=== PATIENT | male | born 1965 | race Caucasian/White ===

== ENCOUNTER 2023-08-02 07:15 | Outpatient (OUT) | payer OTHER, SELFPAY ==
[2023-08-02 07:34] LABS: Basophils Percent Auto 0.8 % (0.2-2.0); Eosinophils Absolute Auto 0.1 10^3/uL (0.0-0.7); Eosinophils Percent Auto 1.4 % (0.9-7.0); Hematocrit 42.8 % (42.0-54.0); Hemoglobin 14.8 g/dL (14.0-18.0); Immature Granulocytes Abs Auto 0.01 10^3/uL (0.00-0.03); Immature Granulocytes Pct Auto 0.2 % (0.0-0.5); Lymphocytes Absolute Auto 1.5 10^3/uL (1.2-3.8); Lymphocytes Percent Auto 29.4 % (20.5-60.0); Mean Corpuscular HGB Conc 34.6 g/dL (29.9-35.2); Mean Corpuscular Hemoglobin 31.4 pg (25.9-34.0); Mean Corpuscular Volume 90.9 fL (80.0-94.0); Mean Platelet Volume 10.8 fL (9.5-13.5); Monocytes Absolute Auto 0.4 10^3/uL (0.3-0.8); Monocytes Percent Auto 8.1 % (1.7-12.0); Neutrophils Percent Auto 60.1 % (43.0-75.0); Platelet Count 153 10^3/uL (150-450); Red Blood Count 4.71 10^6/uL (4.70-6.10)
[2023-08-02 08:05] LABS: Estimated Average Glucose 163 mg/dL; Glycohemoglobin A1C 7.3 % (4.5-6.2)
[2023-08-02 09:10] LABS: Alanine Aminotransferase 56 U/L (16-63); Albumin Level 3.7 g/dL (3.4-5.0); Alkaline Phosphatase 87 U/L (46-116); Aspartate Amino Transferase 26 U/L (15-37); BUN Creatinine Ratio 12.4; Bilirubin Total 0.4 mg/dL (0.2-1.0); Calcium 9.3 mg/dL (8.5-10.1); Carbon Dioxide 24.2 mmol/L (21.0-32.0); Chloride 105 mmol/L (98-107); Chol HDL Ratio 4.3; Cholesterol 165 mg/dL (<=200); Estimated GFR (African America >60 (>=60); Estimated GFR (Non-African Ame >60 (>=60); Globulin 3.7 g/dL; Glucose 189 mg/dL (74-106); HDL Cholesterol 38 mg/dL (40-60); Potassium 4.2 mmol/L (3.5-5.1); Sodium 142 mmol/L (136-145); Thyroid Stimulating Hormone 1.388 uIU/mL (0.358-3.740); Total Protein 7.4 g/dL (6.4-8.2); Triglycerides 187 mg/dL (<=150); VLDL CHOLESTEROL 37.4 mg/dL
[2023-08-02 09:29] LABS: Prostate Specific Antigen Scrn 1.18 ng/mL (<=4.00)
[2023-08-03 08:08] LABS: Testosterone 230 ng/dL (264-916)
== END 2023-08-02 07:16 | disposition home or self-care (01) ==
PROVIDERS: PCP Family Medicine; Visit Provider Family Medicine
DX: Z00.00 Encounter for general adult medical examination without abnormal findings (principal); R53.83 Other fatigue
CPT/HCPCS: 36415; 80053; 80061; 83036; 84403; 84436; 84443; 84481; 85025; G0103

== ENCOUNTER 2023-08-03 14:26 | Outpatient (REF) | payer OTHER, SELFPAY ==
[2023-08-04 16:24] LABS: Occult Blood Negative
== END 2023-08-03 14:27 | disposition home or self-care (01) ==
LOC: LAB 14:26
PROVIDERS: PCP Family Medicine; Visit Provider Family Medicine
DX: Z00.00 Encounter for general adult medical examination without abnormal findings (principal)
CPT/HCPCS: G0328

== ENCOUNTER 2023-08-16 08:23 | Outpatient (OUT) | payer OTHER, SELFPAY ==
--- OUTSIDE RECORDS SUMMARY | 2023-08-16 08:26 | XMS_ITS | CCD ---
Author Organization [facility] Care Team Providers Care [employer] Sales Agent Name Role Phone DR CAROLYN BAIRES Admitting Unavailable DR CAROLYN BAIRES Attending Unavailable DR CAROLYN BAIRES Primary Care Unavailable DR CAROLYN BAIRES Admitting Unavailable DR CAROLYN BAIRES Attending Unavailable DR CAROLYN BAIRES Primary Care Unavailable DR CAROLYN BAIRES Consulting Unavailable WEST, DR FRANCISCO J Soares Consulting Unavailable Allergies Allergy Classification Reported Allergen(s) Allergy Type Date of Onset Reaction(s) Facility (2 sources) Shellfish Drug allergy (disorder) [facility] Repository Problems Problem Classification Problem Date Documented Da te Episodic/Chronic Other non-traumatic joint disorders (1 source) Pain in right shoulder; Translations: [PAIN IN RIGHT SHOULDER] Onset: 02-19-2022 Episodic Other non-traumatic joint disorders (1 source) Pain in left shoulder; Translations: [PAIN IN LEFT SHOULDER] Onset: 02-19-2022 Episodic Other screening for suspected conditions (not mental disorders or infectious disease) (1 source) Encounter for screening for malignant neoplasm of prostate; Translations: [ENC SCREEN MALIG NEOPLASM PROSTATE] Onset: 02-19-2022 Episodic Results Test Name Value Interpretation Reference Range Facil ity INSULINon 02-18-2022 Insulin 24.2 uIU/mL Normal 2.6-24.9 [facility] Comment on above: Performed By: #### I NSULIN #### [facility] [address] [address] [address] Geo Johns XR SHOULDER AMANDA 2V or >on XR SHOULDER AMANDA 2V or > EXAMINATION: XR SHOULDER AMANDA 2V or > HISTORY: Shoulder joint pain COMPARISON: No relevant comparison available. FINDINGS: RIGHT FINDINGS: BONES: Normal. No significant arthropathy or acute abnormality. SOFT TISSUES: Negative. No visible soft tissue swelling. OTHER: Degenerative spondylosis of the spine. LEFT FINDINGS: BONES: Normal. No significant arthropathy or acute abnormality. SOFT TISSUES: Negative. No visible soft tissue swelling. OTHER: Negative. IMPRESSION: RIGHT CONCLUSION: No acute abnormality LEFT CONCLUSION: No acute abnormality Electronically authenticated by: FRANCISCO J CHEUNG Date: 2022-02-18 17:12 Normal [facility] CBC AUTO DIFFon 02-16-2022 BASO # 0.0 103/ul Normal 0.0-0.1 [facility] Comment on above: Performed By: #### C BC #### [facility] [address] [place] [address] Dr. Geo Johns Basophils/100 WBC (Bld) 0.7 % Normal 0.2-2.0 [facility] Comment on above: Performed By: #### C BC #### [facility] [address] [place] [address] Dr. Geo Johns EO # 0.1 103/ul Normal 0.0-0.7 [facility] Comment on above: Performed By: #### C BC #### [facility] [address] [place] [address] Dr. Geo Johns Eosinophils/100 WBC (Bld) 1.0 % Normal 0.9-7.0 [facility] Comment on above: Performed By: #### C BC #### [facility] [address] [place] [address] Dr. Geo Johns Erythrocyte distribution width (RBC) [Ratio] 13.2 % Normal 11.0-15.0 [facility] Comment on above: Performed By: #### C BC #### [facility] [address] [place] [address] Dr. Geo Johns Hematocrit (Bld) [Volume fraction] 44.2 % Normal 42.0-54.0 [facility] Comment on above: Performed By: #### C BC #### [facility] [address] [place] [address] Dr. Geo Johns Hemoglobin (Bld) [Mass/Vol] 15.4 g/dL Normal 14.0-18.0 [facility] Comment on above: Performed By: #### C BC #### [facility] [address] [place] [address] Dr. Geo Johns IG # 0.02 10e3/ul Normal 0.00-0.03 [facility] Comment on above: Performed By: #### C BC #### [facility] [address] [place] [address] Dr. Geo Johns IG % 0.3 % Normal 0.0-0.5 [facility] Comment on above: Performed By: #### C BC #### [facility] [address] [place] [address] Dr. Geo Johns LYMPH # 1.8 103/ul Normal 1.2-3.8 [facility] Comment on above: Performed By: #### C BC #### [facility] [address] [place] [address] Dr. Geo Johns Lymphocytes/100 WBC (Bld) 30.3 % Normal 20.5-60.0 [facility] Comment on above: Performed By: #### C BC #### [facility] [address] [place] [address] Dr. Geo Johns MANUAL DIFF REQ NO Normal [facility] Comment on above: Performed By: #### C BC #### [facility] [address] [place] [address] Dr. Geo Johns MCH (RBC) [Entitic mass] 31.9 pg Normal 25.9-34.0 [facility] Comment on above: Performed By: #### C BC #### [facility] [address] [place] [address] Dr. Geo Johns MCHC (RBC) [Mass/Vol] 34.8 g/dL Normal 29.9-35.2 [facility] Comment on above: Performed By: #### C BC #### [facility] [address] [place] [address] Dr. Geo Johns MCV (RBC) [Entitic vol] 91.5 fL Normal 80.0-94.0 [facility] Comment on above: Performed By: #### C BC #### [facility] [address] [place] [address] Dr. Geo Johns MONO # 0.5 103/ul Normal 0.3-0.8 [facility] Comment on above: Performed By: #### C BC #### [facility] [address] [address] [address] Geo Johns Monocytes/100 WBC (Bld) 7.9 % Normal 1.7-12.0 [facility] Comment on above: Performed By: #### C BC #### [facility] [address] [place] [address] Dr. Geo Johns NEUT # 3.5 103/ul Normal 1.4-6.5 [facility] Comment on above: Performed By: #### C BC #### [facility] [address] [place] [address] Dr. Geo Johns Neutrophils/100 WBC (Bld) 59.8 % Normal 43.0-75.0 [facility] Comment on above: Performed By: #### C BC #### [facility] [address] [place] [address] Dr. Geo Johns Platelet mean volume (Bld) [Entitic vol] 10.9 fL Normal 9.5-13.5 [facility] Comment on above: Performed By: #### C BC #### [facility] [address] [place] [address] Dr. Geo Johns PLT 158 103/ul Normal 150-450 [facility] Comment on above: Performed By: #### C BC #### [facility] [address] [place] [address] Dr. Geo Johns RBC 4.83 106/ul Normal 4.70-6.10 [facility] Comment on above: Performed By: #### C BC #### [facility] [address] [place] [address] Dr. Geo Johns WBC 5.8 103/ul Normal 4.0-11.0 [facility] Comment on above: Performed By: #### C BC #### [facility] [address] [place] [address] Dr. Geo Johns GLYCOHEMOGLOBIN A1Con 2021 ADA RECOMMENDATION SEE BELOW Normal [facility] Comment on above: Result Comment: ADA RECOMMENDED LIMIT 4.0 - 6.0 ADA THERAPEUTIC TARGET < 7.0 ACTION SUGGESTED > 7.0 Performed By: #### A 1C #### [facility] [address] [address] [address] Geo Johns Glucose [Mass/Vol] 117 mg/dL Normal [facility] Comment on above: Performed By: #### A 1C #### [facility] [address] [address] [address] Geo Johns HbA1c (Bld) [Mass fraction] 5.7 % Normal 4.5-6.2 [facility] Comment on above: Performed By: #### A 1C #### [facility] [address] [address] [address] Geo Johns LIPID PROFILEon 02-16-2022 CHOL-HDL RATIO NORM SEE BELOW Normal [facility] Comment on above: Result Comment: 3.3 - 4.4 LOW RISK 4.4 - 7.1 AVERAGE RISK 7.1 - 11.0 MODERATE RISK >11.0 HIGH RISK Performed By: #### U SERA, CMP, LIPID #### [facility] [address] [address] [address] Geo Johns Cholesterol [Mass/Vol] 183 mg/dL Normal <=200 [facility] Comment on above: Performed By: #### U SERA, CMP, LIPID #### [facility] [address] [address] [address] Geo Johns Cholesterol in HDL [Mass/Vol] 59 mg/dL Normal 40-60 [facility] Comment on above: Performed By: #### U SERA, CMP, LIPID #### [facility] [address] [address] [address] Geo Johns Cholesterol in LDL [Mass/Vol] 101.6 mg/dL Normal [facility] Comment on above: Performed By: #### U SERA, CMP, LIPID #### [facility] [address] [address] [address] Geo Johns Cholesterol.total/Cho lesterol in HDL [Mass ratio] 3.1 {ratio} Normal [facility] Comment on above: Performed By: #### U SERA, CMP, LIPID #### [facility] [address] [address] [address] Geo Johns HDL NORMAL > or = 60 mg/dl - LOW CARDIOVASCULAR RISK <40 mg/dl - HIGH CARDIOVASCULAR RISK Normal [facility] Comment on above: Performed By: #### U SERA, CMP, LIPID #### [facility] [address] [address] [address] Geo Johns LDL CALC NORMAL SEE BELOW Normal [facility] Comment on above: Result Comment: <100 mg/dl OPTIMAL 100 - 129 mg/dl NEAR OR ABOVE OPTIMAL 130 - 159 mg/dl BORDERLINE HIGH 160 - 189 mg/dl HIGH >190 mg/dl VERY HIGH Performed By: #### U SERA, CMP, LIPID #### [facility] [address] [address] [address] Geo Johns Triglyceride [Mass/Vol] 112 mg/dL Normal <=150 [facility] Comment on above: Performed By: #### U SERA, CMP, LIPID #### [facility] [address] [address] [address] Geo Johns VLDL CALC 22.4 mg/dL Normal [facility] Comment on above: Performed By: #### U SERA, CMP, LIPID #### [facility] [address] [address] [address] Geo Johns PROF 14(COMP METB)on 022 Albumin [Mass/Vol] 4.1 g/dL Normal 3.4-5.0 [facility] Comment on above: Performed By: #### U SERA, CMP, LIPID #### [facility] [address] [address] [address] Geo Johns Albumin/Globulin [Mass ratio] 1.2 {ratio} Normal [facility] Comment on above: Performed By: #### U SERA, CMP, LIPID #### [facility] [address] [address] [address] Geo Johns ALP [Catalytic activity/Vol] 68 U/L Normal 46-116 [facility] Comment on above: Performed By: #### U SERA, CMP, LIPID #### [facility] [address] [address] [address] Geo Johns ALT [Catalytic activity/Vol] 35 U/L Normal 16-63 [facility] Comment on above: Performed By: #### U SERA, CMP, LIPID #### [facility] [address] [address] [address] Geo Johns Anion gap [Moles/Vol] 14.7 mmol/L Normal [facility] Comment on above: Performed By: #### U SERA, CMP, LIPID #### [facility] [address] [address] [address] Geo Johns AST [Catalytic activity/Vol] 16 U/L Normal 15-37 [facility] Comment on above: Performed By: #### U SERA, CMP, LIPID #### [facility] [address] [place] [address] Dr. Geo Johns Bilirubin [Mass/Vol] 0.3 mg/dL Normal 0.2-1.0 [facility] Comment on above: Performed By: #### U SERA, CMP, LIPID #### [facility] [address] [address] [address] Geo Johns Calcium [Mass/Vol] 8.7 mg/dL Normal 8.5-10.1 [facility] Comment on above: Performed By: #### U SERA, CMP, LIPID #### [facility] [address] [place] [address] Dr. Geo Johns Chloride [Moles/Vol] 105 mmol/L Normal 98-107 [facility] Comment on above: Performed By: #### U SERA, CMP, LIPID #### [facility] [address] [address] [address] Geo Johns CO2 [Moles/Vol] 25.8 mmol/L Normal 21.0-32.0 [facility] Comment on above: Performed By: #### U SERA, CMP, LIPID #### [facility] [address] [address] [address] Geo Johns Creatinine [Mass/Vol] 1.00 mg/dL Normal 0.70-1.30 [facility] Comment on above: Performed By: #### U SERA, CMP, LIPID #### [facility] [address] [address] [address] Geo Johns EGFR-AF BURMESE >60 Normal >=60 [facility] Comment on above: Performed By: #### U SERA, CMP, LIPID #### [facility] [address] [address] [address] Geo Johns EGFR-NON AF BURMESE >60 Normal >=60 [facility] Comment on above: Performed By: #### U SERA, CMP, LIPID #### [facility] [address] [address] [address] Geo Johns Globulin (S) [Mass/Vol] 3.3 g/dL Normal [facility] Comment on above: Performed By: #### U SERA, CMP, LIPID #### [facility] [address] [address] [address] Geo Johns Glucose [Mass/Vol] 127 mg/dL Critically high 74-106 [facility] Comment on above: Performed By: #### U SERA, CMP, LIPID #### [facility] [address] [address] [address] Geo Johns Potassium [Moles/Vol] 4.5 mmol/L Normal 3.5-5.1 [facility] Comment on above: Performed By: #### U SERA, CMP, LIPID #### [facility] [address] [address] [address] Geo Johns Protein [Mass/Vol] 7.4 g/dL Normal 6.4-8.2 [facility] Comment on above: Performed By: #### U SERA, CMP, LIPID #### [facility] [address] [address] [address] Geo Johns Sodium [Moles/Vol] 141 mmol/L Normal 136-145 [facility] Comment on above: Performed By: #### U SERA, CMP, LIPID #### [facility] [address] [address] [address] Geo Johns Urea nitrogen [Mass/Vol] 23.0 mg/dL Critically high 7.0-18.0 [facility] Comment on above: Performed By: #### U SERA, CMP, LIPID #### [facility] [address], [place] [address] Dr. Geo Johns Urea nitrogen/Creatinine [Mass ratio] 23.0 mg/mg Normal [facility] Comment on above: Performed By: #### U SERA, CMP, LIPID #### [facility] [address], [place] [address] Dr. Geo Johns URIC ACID SERUMon 02-16-2022 Urate [Mass/Vol] 4.9 mg/dL Normal 3.5-7.2 [facility] Comment on above: Performed By: #### U SERA, CMP, LIPID #### [facility] [address], [place] [address] Dr. Geo Johns Encounters Encounter Date Encounter Type Care Provider Facility Start: 02-19-2022 Encounter for genera l adult medical examination without abnormal findings DR CAROLYN BAIRES [facility] Start: 02-16-2022 End: 02-17-[address] CAROLYN BAIRES Facility:[facility] Start: 02-16-2022 End: 02-17-2022 Encounter for general adult medical examination without abnormal findings DR CAROLYN BAIRES Facility:[facility] Start: 07-17-[address] CAROLYN BAIRES Facility :[facility] Procedures Date Procedure Procedure Detail Performing Clinician Start: 02-16-[address] BOZENA BAIRES Comment on above: Performed By: #### P SASC #### [facility] [address], [place] [address] Dr. Geo Johns Payers Date Payer Category Payer Unknown [id number] [id number] [id number] 1965 Unknown [id number] 1958 Self-pay 1958 Unknown [id number] Summary Purpose Family History No Family History Records Found Advance Directives No Advanced Directives Records Found Additional Source Comments (unrecognized sect ion and content) No Status Records Found INFORMATION SOURCE (unrecogn ized section and content) DATE CREATED AUTHOR 02/20/2022 [facility] FOR RECORDS PERTAINING TO PATIENTS WHO ARE OR HAVE BEEN ENROLLED IN A CHEMICAL DEPENDENCY/SUBSTANCEABUSE PROGRAM, SOME INFORMATION MAY BE OMITTED. This clinical summary was aggregated from multiple sources. Caution should be exercised in using it in the provision of clinical care. This summary normalizes information from multiple sources, and as a consequence, information in this document may materially change the coding, format and clinical context of patient data. In addition, data may be omitted in some cases. CLINICAL DECISIONS SHOULD BE BASED ON THE PRIMARY CLINICAL RECORDS. [facility], [facility]. provides no warranty or guarantee of the accuracy or completeness of information in this document.
[2023-08-17 08:07] LABS: Testosterone 315 ng/dL (264-916)
== END 2023-08-16 08:24 | disposition home or self-care (01) ==
LOC: LAB 08:24
PROVIDERS: PCP Family Medicine; Visit Provider Family Medicine
DX: E29.1 Testicular hypofunction (principal)
CPT/HCPCS: 36415; 84403

== ENCOUNTER 2023-11-29 08:25 | Outpatient (OUT) | payer OTHER, SELFPAY ==
--- OUTSIDE RECORDS SUMMARY | 2023-11-17 06:31 | XMS_ITS | CCD ---
Author Organization [facility] Care Team Providers Care Brush Maker Machine Name Role Phone DR CAROLYN BAIRES Admitting Unavailable DEQUAN, DR LEON Attending Unavailable DR CAROLYN BAIRES Primary Care Unavailable DR CAROLYN BAIRES Admitting Unavailable DEQUAN, DR LEON Attending Unavailable DEQUAN, DR LEON Primary Care Unavailable DR CAROLYN BAIRES Consulting Unavailable WEST, DR FRANCISCO J Soares Consulting Unavailable Allergies Allergy Classification Reported Allergen(s) Allergy Type Date of Onset Reaction(s) Facility (2 sources) Shellfish Drug allergy (disorder) [facility] Repository Problems Problem Classification Problem Date [...] INSULINon 02-18-2022 Insulin 24.2 uIU/mL Normal 2.6-24.9 [facility] Comment on above: Performed By: #### I NSULIN #### [facility] [address] [address] [address] Geo Johns XR SHOULDER AMANDA 2V [...] J CHEUNG Date: 2022-02-18 17:12 Normal [facility] CBC AUTO DIFFon 02-16-2022 BASO # 0.0 103/ul Normal 0.0-0.1 [facility] Comment on above: Performed By: #### C BC #### [facility] [address] [place] [address] Dr. Geo Johns Basophils/100 WBC (Bld) 0.7 % Normal 0.2-2.0 [facility] Comment on above: Performed By: #### C BC #### [facility] [address] [place] [address] Dr. Geo Johns EO # 0.1 103/ul Normal 0.0-0.7 [facility] Comment on above: Performed By: #### C BC #### [facility] [address] [place] [address] Dr. Geo Johns Eosinophils/100 WBC (Bld) 1.0 % Normal 0.9-7.0 [facility] Comment on above: Performed By: #### C BC #### [facility] [address] [place] [address] Dr. Geo Johns Erythrocyte distribution width (RBC) [Ratio] 13.2 % Normal 11.0-15.0 [facility] Comment on above: Performed By: #### C BC #### [facility] [address] [place] [address] Dr. Geo Johsn Hematocrit (Bld) [Volume fraction] 44.2 % Normal 42.0-54.0 [facility] Comment on above: Performed By: #### C BC #### [facility] [address] [place] [address] Dr. Geo Johns Hemoglobin (Bld) [Mass/Vol] 15.4 g/dL Normal 14.0-18.0 [facility] Comment on above: Performed By: #### C BC #### [facility] [address] [place] [address] Dr. Geo Johns IG # 0.02 10e3/ul Normal 0.00-0.03 [facility] Comment on above: Performed By: #### C BC #### [facility] [address] [place] [address] Dr. Geo Johns IG % 0.3 % Normal 0.0-0.5 [facility] Comment on above: Performed By: #### C BC #### [facility] [address] [place] [address] Dr. Geo Johns LYMPH # 1.8 103/ul Normal 1.2-3.8 [facility] Comment on above: Performed By: #### C BC #### [facility] [address] [place] [address] Dr. Geo Johns Lymphocytes/100 WBC (Bld) 30.3 % Normal 20.5-60.0 [facility] Comment on above: Performed By: #### C BC #### [facility] [address] [place] [address] Dr. Geo Johns MANUAL DIFF REQ NO Normal [facility] Comment on above: Performed By: #### C BC #### [facility] [address] [place] [address] Dr. Geo Johns MCH (RBC) [Entitic mass] 31.9 pg Normal 25.9-34.0 [facility] Comment on above: Performed By: #### C BC #### [facility] [address] [place] [address] Dr. Geo Johns MCHC (RBC) [Mass/Vol] 34.8 g/dL Normal 29.9-35.2 [facility] Comment on above: Performed By: #### C BC #### [facility] [address] [place] [address] Dr. Geo Johns MCV (RBC) [Entitic vol] 91.5 fL Normal 80.0-94.0 [facility] Comment on above: Performed By: #### C BC #### [facility] [address] [place] [address] Dr. Geo Johns MONO # 0.5 103/ul Normal 0.3-0.8 [facility] Comment on above: Performed By: #### C BC #### [facility] [address] [place] [address] Dr. Geo Johns Monocytes/100 WBC (Bld) 7.9 % Normal 1.7-12.0 [facility] Comment on above: Performed By: #### C BC #### [facility] [address] [place] [address] Dr. Geo Johns NEUT # 3.5 103/ul Normal 1.4-6.5 [facility] Comment on above: Performed By: #### C BC #### [facility] [address] [place] [address] Dr. Geo Johns Neutrophils/100 WBC (Bld) 59.8 % Normal 43.0-75.0 [facility] Comment on above: Performed By: #### C BC #### [facility] [address] [place] [address] Dr. Geo Johns Platelet mean volume (Bld) [Entitic vol] 10.9 fL Normal 9.5-13.5 [facility] Comment on above: Performed By: #### C BC #### [facility] [address] [place] [address] Dr. Geo Johns PLT 158 103/ul Normal 150-450 [facility] Comment on above: Performed By: #### C BC #### [facility] [address] [place] [address] Dr. Geo Johns RBC 4.83 106/ul Normal 4.70-6.10 [facility] Comment on above: Performed By: #### C BC #### [facility] [address] [place] [address] Dr. Geo Johns WBC 5.8 103/ul Normal 4.0-11.0 [facility] Comment on above: Performed By: #### C BC #### [facility] [address] [place] [address] Dr. Geo Johns GLYCOHEMOGLOBIN A1Con 2021 ADA RECOMMENDATION SEE BELOW Normal [facility] Comment on above: Result Comment: ADA RECOMMENDED LIMIT 4.0 - 6.0 ADA THERAPEUTIC TARGET < 7.0 ACTION SUGGESTED > 7.0 Performed By: #### A 1C #### [facility] [address] [address] [address] Geo Johns Glucose [Mass/Vol] 117 mg/dL Normal [facility] Comment on above: Performed By: #### A 1C #### [facility] [address] [address] [address] Geo Johns HbA1c (Bld) [Mass fraction] 5.7 % Normal 4.5-6.2 [facility] Comment on above: Performed By: #### A 1C #### [facility] [address] [address] [address] Geo Johns LIPID PROFILEon 02-16-2022 CHOL-HDL RATIO NORM SEE BELOW Normal [facility] Comment on above: Result Comment: 3.3 - 4.4 LOW RISK 4.4 - 7.1 AVERAGE RISK 7.1 - 11.0 MODERATE RISK >11.0 HIGH RISK Performed By: #### U SERA, CMP, LIPID #### [facility] [address] [address] [address] Geo Johns Cholesterol [Mass/Vol] 183 mg/dL Normal <=200 [facility] Comment on above: Performed By: #### U SERA, CMP, LIPID #### [facility] [address] [address] [address] Geo Johns Cholesterol in HDL [Mass/Vol] 59 mg/dL Normal 40-60 [facility] Comment on above: Performed By: #### U SERA, CMP, LIPID #### [facility] [address] [address] [address] Geo Johns Cholesterol in LDL [Mass/Vol] 101.6 mg/dL Normal [facility] Comment on above: Performed By: #### U SERA, CMP, LIPID #### [facility] [address] [address] [address] Geo Johns Cholesterol.total/Cho lesterol in HDL [Mass ratio] 3.1 {ratio} Normal [facility] Comment on above: Performed By: #### U SERA, CMP, LIPID #### [facility] [address] [address] [address] Geo Johns HDL NORMAL > or = 60 mg/dl - LOW CARDIOVASCULAR RISK <40 mg/dl - HIGH CARDIOVASCULAR RISK Normal [facility] Comment on above: Performed By: #### U SERA, CMP, LIPID #### [facility] [address] [address] [address] Geo Johns LDL CALC NORMAL SEE BELOW Normal [facility] Comment on above: Result Comment: <100 mg/dl OPTIMAL 100 - 129 mg/dl NEAR OR ABOVE OPTIMAL 130 - 159 mg/dl BORDERLINE HIGH 160 - 189 mg/dl HIGH >190 mg/dl VERY HIGH Performed By: #### U SERA, CMP, LIPID #### [facility] [address] [address] [address] Geo Johns Triglyceride [Mass/Vol] 112 mg/dL Normal <=150 [facility] Comment on above: Performed By: #### U SERA, CMP, LIPID #### [facility] [address] [address] [address] Geo Johns VLDL CALC 22.4 mg/dL Normal [facility] Comment on above: Performed By: #### U SERA, CMP, LIPID #### [facility] [address] [address] [address] Geo Johns PROF 14(COMP METB)on 022 Albumin [Mass/Vol] 4.1 g/dL Normal 3.4-5.0 [facility] Comment on above: Performed By: #### U SERA, CMP, LIPID #### [facility] [address] [address] [address] Geo Johns Albumin/Globulin [Mass ratio] 1.2 {ratio} Normal [facility] Comment on above: Performed By: #### U SERA, CMP, LIPID #### [facility] [address] [address] [address] Geo Johns ALP [Catalytic activity/Vol] 68 U/L Normal 46-116 [facility] Comment on above: Performed By: #### U SERA, CMP, LIPID #### [facility] [address] [address] [address] Geo Johns ALT [Catalytic activity/Vol] 35 U/L Normal 16-63 [facility] Comment on above: Performed By: #### U SERA, CMP, LIPID #### [facility] [address] [address] [address] Geo Johns Anion gap [Moles/Vol] 14.7 mmol/L Normal [facility] Comment on above: Performed By: #### U SERA, CMP, LIPID #### [facility] [address] [address] [address] Geo Johns AST [Catalytic activity/Vol] 16 U/L Normal 15-37 [facility] Comment on above: Performed By: #### U SERA, CMP, LIPID #### [facility] [address] [address] [address] Geo Johns Bilirubin [Mass/Vol] 0.3 mg/dL Normal 0.2-1.0 [facility] Comment on above: Performed By: #### U SERA, CMP, LIPID #### [facility] [address] [address] [address] Geo Johns Calcium [Mass/Vol] 8.7 mg/dL Normal 8.5-10.1 [facility] Comment on above: Performed By: #### U SERA, CMP, LIPID #### [facility] [address] [address] [address] Geo Johns Chloride [Moles/Vol] 105 mmol/L Normal 98-107 [facility] Comment on above: Performed By: #### U SERA, CMP, LIPID #### [facility] [address] [address] [address] Geo Johns CO2 [Moles/Vol] 25.8 mmol/L Normal 21.0-32.0 [facility] Comment on above: Performed By: #### U SERA, CMP, LIPID #### [facility] [address] [address] [address] Geo Johns Creatinine [Mass/Vol] 1.00 mg/dL Normal 0.70-1.30 [facility] Comment on above: Performed By: #### U SERA, CMP, LIPID #### [facility] [address] [address] [address] Geo Johns EGFR-AF [place] >60 Normal >=60 [facility] Comment on above: Performed By: #### U SERA, CMP, LIPID #### [facility] [address] [address] [address] Geo Johns EGFR-NON AF [place] >60 Normal >=60 [facility] Comment on above: Performed By: #### U SERA, CMP, LIPID #### [facility] [address] [address] [address] Geo Johns Globulin (S) [Mass/Vol] 3.3 g/dL Normal [facility] Comment on above: Performed By: #### U SERA, CMP, LIPID #### [facility] [address] [address] [address] Geo Johns Glucose [Mass/Vol] 127 mg/dL Critically high 74-106 [facility] Comment on above: Performed By: #### U SERA, CMP, LIPID #### [facility] [address] [address] [address] Geo Johns Potassium [Moles/Vol] 4.5 mmol/L Normal 3.5-5.1 [facility] Comment on above: Performed By: #### U SERA, CMP, LIPID #### [facility] [address] [address] [address] Geo Johns Protein [Mass/Vol] 7.4 g/dL Normal 6.4-8.2 [facility] Comment on above: Performed By: #### U SERA, CMP, LIPID #### [facility] [address] [address] [address] Geo Johns Sodium [Moles/Vol] 141 mmol/L Normal 136-145 [facility] Comment on above: Performed By: #### U SERA, CMP, LIPID #### [facility] [address] [address] [address] Geo Johns Urea nitrogen [Mass/Vol] 23.0 mg/dL Critically high 7.0-18.0 [facility] Comment on above: Performed By: #### U SERA, CMP, LIPID #### [facility] [address] [place], [place] [address] Dr. Geo Johns Urea nitrogen/Creatinine [Mass ratio] 23.0 mg/mg Normal [facility] Comment on above: Performed By: #### U SERA, CMP, LIPID #### [facility] [address] [place], [place] [address] Dr. Geo Johns URIC ACID SERUMon 02-16-2022 Urate [Mass/Vol] 4.9 mg/dL Normal 3.5-7.2 [facility] Comment on above: Performed By: #### U SERA, CMP, LIPID #### [facility] [id number] Geo Johns Encounters Encounter Date Encounter Type Care Provider Facility Start: 02-19-2022 Encounter for genera l adult medical examination without abnormal findings DR CAROLYN BAIRES [facility] Start: 02-16-2022 End: 02-17-[address] CAROLYN BAIRES Facility:[facility] Start: 02-16-2022 End: 02-17-2022 Encounter for general adult medical examination without abnormal findings DR CAROLYN BAIRES Facility:[facility] Start: 07-17-[address] CAROLYN BAIRES Facility :[facility] Procedures Date Procedure Procedure Detail Performing Clinician Start: 02-16-[address] BOZENA BAIRES Comment on above: Performed By: #### P SASC #### [facility] [id number] Geo Johns Payers Date Payer Category Payer Unknown [id number] 1965 Unknown [id number] 1958 Self-pay 1958 Unknown [id number] Summary Purpose Family History No Family History Records Found Advance Directives No Advanced Directives Records Found Additional Source Comments (unrecognized sect ion and content) No Status Records Found INFORMATION SOURCE (unrecogn ized section and content) DATE CREATED AUTHOR 02/20/2022 Gisela delcid FOR RECORDS PERTAINING TO PATIENTS WHO ARE [...] BE BASED ON THE PRIMARY CLINICAL RECORDS. [facility] provides no warranty or guarantee of the accuracy or completeness of information in this document.
[2023-11-30 08:08] LABS: Testosterone 249 ng/dL (264-916)
--- OUTSIDE RECORDS SUMMARY | 2023-12-01 08:46 | XMS_ITS | CCD ---
Author Organization [facility] Care Team Providers Care Net C Developer Name Role Phone DR CAROLYN BAIRES Admitting [...] (2 sources) Shellfish Drug allergy (disorder) [facility] Repository Problems Problem Classification Problem Date Documented [...] INSULINon 02-18-2022 Insulin 24.2 uIU/mL Normal 2.6-24.9 [facility] Comment on above: Performed By: #### I NSULIN #### [facility] [address] [address] [address] Geo Johns XR SHOULDER AMANDA 2V [...] J CHEUNG Date: 2022-02-18 17:12 Normal [facility] CBC AUTO DIFFon 02-16-2022 BASO # 0.0 103/ul Normal 0.0-0.1 [facility] Comment on above: Performed By: #### C BC #### [facility] [address] [place] [address] Dr. Geo Johns Basophils/100 WBC (Bld) 0.7 % Normal 0.2-2.0 [facility] Comment on above: Performed By: #### C BC #### [facility] [address] [place] [address] Dr. Geo Johns EO # 0.1 103/ul Normal 0.0-0.7 [facility] Comment on above: Performed By: #### C BC #### [facility] [address] [place] [address] Dr. Geo Johns Eosinophils/100 WBC (Bld) 1.0 % Normal 0.9-7.0 [facility] Comment on above: Performed By: #### C BC #### [facility] [address] [place] [address] Dr. Geo Johns Erythrocyte distribution width (RBC) [Ratio] 13.2 % Normal 11.0-15.0 [facility] Comment on above: Performed By: #### C BC #### [facility] [address] [place] [address] Dr. Geo Johns Hematocrit (Bld) [Volume fraction] 44.2 % Normal 42.0-54.0 [facility] Comment on above: Performed By: #### C BC #### [facility] [address] [place] [address] Dr. Geo Johns Hemoglobin (Bld) [Mass/Vol] 15.4 g/dL Normal 14.0-18.0 [facility] Comment on above: Performed By: #### C BC #### [facility] [address] [place] [address] Dr. Geo Johns IG # 0.02 10e3/ul Normal 0.00-0.03 [facility] Comment on above: Performed By: #### C BC #### [facility] [address] [place] [address] Dr. Geo Johns IG % 0.3 % Normal 0.0-0.5 [facility] Comment on above: Performed By: #### C BC #### [facility] [address] [place] [address] Dr. Geo Johns LYMPH # 1.8 103/ul Normal 1.2-3.8 [facility] Comment on above: Performed By: #### C BC #### [facility] [address] [place] [address] Dr. Geo Johns Lymphocytes/100 WBC (Bld) 30.3 % Normal 20.5-60.0 [facility] Comment on above: Performed By: #### C BC #### [facility] [address] [place] [address] Dr. Geo Johns MANUAL DIFF REQ NO Normal [facility] Comment on above: Performed By: #### C BC #### [facility] [address] [place] [address] Dr. Geo Johns MCH (RBC) [Entitic mass] 31.9 pg Normal 25.9-34.0 [facility] Comment on above: Performed By: #### C BC #### [facility] [address] [place] [address] Dr. Geo Johns MCHC (RBC) [Mass/Vol] 34.8 g/dL Normal 29.9-35.2 [facility] Comment on above: Performed By: #### C BC #### [facility] [address] [place] [address] Dr. Geo Johns MCV (RBC) [Entitic vol] 91.5 fL Normal 80.0-94.0 [facility] Comment on above: Performed By: #### C BC #### [facility] [address] [place] [address] Dr. Geo Johns MONO # 0.5 103/ul Normal 0.3-0.8 [facility] Comment on above: Performed By: #### C BC #### [facility] [address] [place] [address] Dr. Geo Johns Monocytes/100 WBC (Bld) 7.9 % Normal 1.7-12.0 [facility] Comment on above: Performed By: #### C BC #### [facility] [address] [place] [address] Dr. Geo Johns NEUT # 3.5 103/ul Normal 1.4-6.5 [facility] Comment on above: Performed By: #### C BC #### [facility] [address] [place] [address] Dr. Geo Johns Neutrophils/100 WBC (Bld) 59.8 % Normal 43.0-75.0 [facility] Comment on above: Performed By: #### C BC #### [facility] [address] [place] [address] Dr. Geo Jhons Platelet mean volume (Bld) [Entitic vol] 10.9 fL Normal 9.5-13.5 [facility] Comment on above: Performed By: #### C BC #### [facility] [address] [place] [address] Dr. Geo Johns PLT 158 103/ul Normal 150-450 [facility] Comment on above: Performed By: #### C BC #### [facility] [address] [place] [address] Dr. Geo Johns RBC 4.83 106/ul Normal 4.70-6.10 [facility] Comment on above: Performed By: #### C BC #### [facility] [address] [place] [address] Dr. Geo Johns WBC 5.8 103/ul Normal 4.0-11.0 [facility] Comment on above: Performed By: #### C BC #### [facility] [address] [place] [address] Dr. Geo Johns GLYCOHEMOGLOBIN A1Con 2021 ADA RECOMMENDATION SEE BELOW Normal [facility] Comment on above: Result Comment: ADA RECOMMENDED LIMIT 4.0 - 6.0 ADA THERAPEUTIC TARGET < 7.0 ACTION SUGGESTED > 7.0 Performed By: #### A 1C #### [facility] [address] [address] [address] Geo Johns Glucose [Mass/Vol] 117 mg/dL Normal [facility] Comment on above: Performed By: #### A 1C #### [facility] [address] [address] [address] Geo Johns HbA1c (Bld) [Mass fraction] 5.7 % Normal 4.5-6.2 [facility] Comment on above: Performed By: #### A 1C #### [facility] [address] [address] [address] Geo Johns LIPID PROFILEon 02-16-2022 CHOL-HDL RATIO NORM SEE BELOW Normal [facility] Comment on above: Result Comment: 3.3 - 4.4 LOW RISK 4.4 - 7.1 AVERAGE RISK 7.1 - 11.0 MODERATE RISK >11.0 HIGH RISK Performed By: #### U SERA, CMP, LIPID #### [facility] [address] [address] [address] Geo Johns Cholesterol [Mass/Vol] 183 mg/dL Normal <=200 [facility] Comment on above: Performed By: #### U SERA, CMP, LIPID #### [facility] [address] [address] [address] Geo Johns Cholesterol in HDL [Mass/Vol] 59 mg/dL Normal 40-60 [facility] Comment on above: Performed By: #### U SERA, CMP, LIPID #### [facility] [address] [address] [address] Geo Johns Cholesterol in LDL [Mass/Vol] 101.6 mg/dL Normal [facility] Comment on above: Performed By: #### U SERA, CMP, LIPID #### [facility] [address] [address] [address] Geo Johns Cholesterol.total/Cho lesterol in HDL [Mass ratio] 3.1 {ratio} Normal [facility] Comment on above: Performed By: #### U SERA, CMP, LIPID #### [facility] [address] [address] [address] Geo Johns HDL NORMAL > or = 60 mg/dl - LOW CARDIOVASCULAR RISK <40 mg/dl - HIGH CARDIOVASCULAR RISK Normal [facility] Comment on above: Performed By: #### U SERA, CMP, LIPID #### [facility] [address] [address] [address] Geo Johns LDL CALC NORMAL SEE BELOW Normal [facility] Comment on above: Result Comment: <100 mg/dl OPTIMAL 100 - 129 mg/dl NEAR OR ABOVE OPTIMAL 130 - 159 mg/dl BORDERLINE HIGH 160 - 189 mg/dl HIGH >190 mg/dl VERY HIGH Performed By: #### U SERA, CMP, LIPID #### [facility] [address] [address] [address] Geo Johns Triglyceride [Mass/Vol] 112 mg/dL Normal <=150 [facility] Comment on above: Performed By: #### U SERA, CMP, LIPID #### [facility] [address] [address] [address] Geo Johns VLDL CALC 22.4 mg/dL Normal [facility] Comment on above: Performed By: #### U SERA, CMP, LIPID #### [facility] [address] [address] [address] Geo Johns PROF 14(COMP METB)on 022 Albumin [Mass/Vol] 4.1 g/dL Normal 3.4-5.0 [facility] Comment on above: Performed By: #### U SERA, CMP, LIPID #### [facility] [address] [address] [address] Geo Johns Albumin/Globulin [Mass ratio] 1.2 {ratio} Normal [facility] Comment on above: Performed By: #### U SERA, CMP, LIPID #### [facility] [address] [address] [address] Geo Johns ALP [Catalytic activity/Vol] 68 U/L Normal 46-116 [facility] Comment on above: Performed By: #### U SERA, CMP, LIPID #### [facility] [address] [address] [address] Geo Johns ALT [Catalytic activity/Vol] 35 U/L Normal 16-63 [facility] Comment on above: Performed By: #### U SERA, CMP, LIPID #### [facility] [address] [address] [address] Geo Johns Anion gap [Moles/Vol] 14.7 mmol/L Normal [facility] Comment on above: Performed By: #### U SERA, CMP, LIPID #### [facility] [address] [address] [address] Geo Johns AST [Catalytic activity/Vol] 16 U/L Normal 15-37 [facility] Comment on above: Performed By: #### U SERA, CMP, LIPID #### [facility] [address] [address] [address] Geo Johns Bilirubin [Mass/Vol] 0.3 mg/dL Normal 0.2-1.0 [facility] Comment on above: Performed By: #### U SERA, CMP, LIPID #### [facility] [address] [address] [address] Geo Johns Calcium [Mass/Vol] 8.7 mg/dL Normal 8.5-10.1 [facility] Comment on above: Performed By: #### U SERA, CMP, LIPID #### [facility] [address] [address] [address] Geo Johns Chloride [Moles/Vol] 105 mmol/L Normal 98-107 [facility] Comment on above: Performed By: #### U SERA, CMP, LIPID #### [facility] [address] [address] [address] Geo Johns CO2 [Moles/Vol] 25.8 mmol/L Normal 21.0-32.0 [facility] Comment on above: Performed By: #### U SERA, CMP, LIPID #### [facility] [address] [address] [address] Geo Johns Creatinine [Mass/Vol] 1.00 mg/dL Normal 0.70-1.30 [facility] Comment on above: Performed By: #### U SERA, CMP, LIPID #### [facility] [address] [address] [address] Geo Johns EGFR-AF LITHUANIAN >60 Normal >=60 [facility] Comment on above: Performed By: #### U SERA, CMP, LIPID #### [facility] [address] [address] [address] Geo Johns EGFR-NON AF LITHUANIAN >60 Normal >=60 [facility] Comment on above: Performed By: #### U SERA, CMP, LIPID #### [facility] [address] [address] [address] Geo Johns Globulin (S) [Mass/Vol] 3.3 g/dL Normal [facility] Comment on above: Performed By: #### U SERA, CMP, LIPID #### [facility] [address] [address] [address] Geo Johns Glucose [Mass/Vol] 127 mg/dL Critically high 74-106 [facility] Comment on above: Performed By: #### U SERA, CMP, LIPID #### [facility] [address] [address] [address] Geo Johns Potassium [Moles/Vol] 4.5 mmol/L Normal 3.5-5.1 [facility] Comment on above: Performed By: #### U SERA, CMP, LIPID #### [facility] [address] [address] [address] Geo Johns Protein [Mass/Vol] 7.4 g/dL Normal 6.4-8.2 [facility] Comment on above: Performed By: #### U SERA, CMP, LIPID #### [facility] [address] [address] [address] Geo Johns Sodium [Moles/Vol] 141 mmol/L Normal 136-145 [facility] Comment on above: Performed By: #### U SERA, CMP, LIPID #### [facility] [address] [address] [address] Geo Johns Urea nitrogen [Mass/Vol] 23.0 mg/dL Critically high 7.0-18.0 [facility] Comment on above: Performed By: #### U SERA, CMP, LIPID #### [facility] [address] [place], [place] [address] Dr. Geo Johns Urea nitrogen/Creatinine [Mass ratio] 23.0 mg/mg Normal [facility] Comment on above: Performed By: #### U SERA, CMP, LIPID #### [facility] [address] [place], [place] [address] Dr. Geo Johns URIC ACID SERUMon 02-16-2022 Urate [Mass/Vol] 4.9 mg/dL Normal 3.5-7.2 [facility] Comment on above: Performed By: #### U SERA, CMP, LIPID #### [facility] [id number] Geo Johns Encounters Encounter Date Encounter Type Care Provider Facility Start: 02-19-2022 Encounter for genera l adult medical examination without abnormal findings DR CAROLYN BAIRES [facility] Start: 02-16-2022 End: 02-17-[address] CAROLYN BAIRES Facility:[facility] Start: 02-16-2022 End: 02-17-2022 Encounter for general adult medical examination without abnormal findings DR CAROLYN BAIRES Facility:[facility] Start: 07-17-[address] CAROLYN BAIRES Facility :[facility] Procedures Date Procedure Procedure Detail Performing Clinician Start: 02-16-[address] BOZENA BAIRES Comment on above: Performed By: #### P SASC #### [facility] [id number] Geo Johns Payers Date Payer Category Payer Unknown [id number] 1965 Unknown [id number] 1958 Self-pay 1958 Unknown [id number] Summary Purpose Family History No Family History [...] BE BASED ON THE PRIMARY CLINICAL RECORDS. [email or web address]. provides no warranty or guarantee of the accuracy or completeness of information in this document.
== END 2023-11-29 08:26 | disposition home or self-care (01) ==
LOC: LAB 12-01 08:26
PROVIDERS: PCP Family Medicine; Visit Provider Family Medicine
DX: E29.1 Testicular hypofunction (principal)
CPT/HCPCS: 36415; 84403

== ENCOUNTER 2024-05-22 07:03 | Outpatient (OUT) | payer OTHER, SELFPAY ==
--- OUTSIDE RECORDS SUMMARY | 2024-05-22 07:06 | XMS_ITS | CCD ---
Author Organization [facility] Care Team Providers Care Ophthalmic Medical Assistant Name Role Phone DR CAROLYN BAIRES Admitting [...] (2 sources) Shellfish Drug allergy (disorder) [facility] Repository Problems Problem Classification Problem Date Documented [...] INSULINon 02-18-2022 Insulin 24.2 uIU/mL Normal 2.6-24.9 [facility] Comment on above: Performed By: #### I NSULIN #### [facility] [address] [address] [address] Geo Johns XR SHOULDER AMANDA 2V [...] J CHEUNG Date: 2022-02-18 17:12 Normal [facility] CBC AUTO DIFFon 02-16-2022 BASO # 0.0 103/ul Normal 0.0-0.1 [facility] Comment on above: Performed By: #### C BC #### [facility] [address] [place] [address] Dr. Geo Johns Basophils/100 WBC (Bld) 0.7 % Normal 0.2-2.0 [facility] Comment on above: Performed By: #### C BC #### [facility] [address] [place] [address] Dr. Geo Johns EO # 0.1 103/ul Normal 0.0-0.7 [facility] Comment on above: Performed By: #### C BC #### [facility] [address] [place] [address] Dr. Geo Johns Eosinophils/100 WBC (Bld) 1.0 % Normal 0.9-7.0 [facility] Comment on above: Performed By: #### C BC #### [facility] [address] [place] [address] Dr. Geo Johns Erythrocyte distribution width (RBC) [Ratio] 13.2 % Normal 11.0-15.0 [facility] Comment on above: Performed By: #### C BC #### [facility] [address] [place] [address] Dr. Geo Johns Hematocrit (Bld) [Volume fraction] 44.2 % Normal 42.0-54.0 [facility] Comment on above: Performed By: #### C BC #### [facility] [address] [place] [address] Dr. Geo Johns Hemoglobin (Bld) [Mass/Vol] 15.4 g/dL Normal 14.0-18.0 [facility] Comment on above: Performed By: #### C BC #### [facility] [address] [place] [address] Dr. Geo Johns IG # 0.02 10e3/ul Normal 0.00-0.03 [facility] Comment on above: Performed By: #### C BC #### [facility] [address] [place] [address] Dr. Geo Johns IG % 0.3 % Normal 0.0-0.5 [facility] Comment on above: Performed By: #### C BC #### [facility] [address] [place] [address] Dr. Geo Johns LYMPH # 1.8 103/ul Normal 1.2-3.8 [facility] Comment on above: Performed By: #### C BC #### [facility] [address] [place] [address] Dr. Geo Johns Lymphocytes/100 WBC (Bld) 30.3 % Normal 20.5-60.0 [facility] Comment on above: Performed By: #### C BC #### [facility] [address] [place] [address] Dr. Geo Johns MANUAL DIFF REQ NO Normal [facility] Comment on above: Performed By: #### C BC #### [facility] [address] [place] [address] Dr. Geo Johns MCH (RBC) [Entitic mass] 31.9 pg Normal 25.9-34.0 [facility] Comment on above: Performed By: #### C BC #### [facility] [address] [place] [address] Dr. Geo Johns MCHC (RBC) [Mass/Vol] 34.8 g/dL Normal 29.9-35.2 [facility] Comment on above: Performed By: #### C BC #### [facility] [address] [place] [address] Dr. Geo Johns MCV (RBC) [Entitic vol] 91.5 fL Normal 80.0-94.0 [facility] Comment on above: Performed By: #### C BC #### [facility] [address] [place] [address] Dr. Geo Johns MONO # 0.5 103/ul Normal 0.3-0.8 [facility] Comment on above: Performed By: #### C BC #### [facility] [address] [place] [address] Dr. Geo Johns Monocytes/100 WBC (Bld) 7.9 % Normal 1.7-12.0 [facility] Comment on above: Performed By: #### C BC #### [facility] [address] [place] [address] Dr. Geo Johns NEUT # 3.5 103/ul Normal 1.4-6.5 [facility] Comment on above: Performed By: #### C BC #### [facility] [address] [place] [address] Dr. Geo Johns Neutrophils/100 WBC (Bld) 59.8 % Normal 43.0-75.0 [facility] Comment on above: Performed By: #### C BC #### [facility] [address] [place] [address] Dr. Geo Johns Platelet mean volume (Bld) [Entitic vol] 10.9 fL Normal 9.5-13.5 [facility] Comment on above: Performed By: #### C BC #### [facility] [address] [place] [address] Dr. Geo Johns PLT 158 103/ul Normal 150-450 [facility] Comment on above: Performed By: #### C BC #### [facility] [address] [place] [address] Dr. Geo Johns RBC 4.83 106/ul Normal 4.70-6.10 [facility] Comment on above: Performed By: #### C BC #### [facility] [address] [place] [address] Dr. Geo Johns WBC 5.8 103/ul Normal 4.0-11.0 [facility] Comment on above: Performed By: #### C BC #### [facility] [address] [place] [address] Dr. Geo Johns GLYCOHEMOGLOBIN A1Con 2021 ADA RECOMMENDATION SEE BELOW Normal [facility] Comment on above: Result Comment: ADA RECOMMENDED LIMIT 4.0 - 6.0 ADA THERAPEUTIC TARGET < 7.0 ACTION SUGGESTED > 7.0 Performed By: #### A 1C #### [facility] [address] [address] [address] Geo Johns Glucose [Mass/Vol] 117 mg/dL Normal [facility] Comment on above: Performed By: #### A 1C #### [facility] [address] [address] [address] Geo Johns HbA1c (Bld) [Mass fraction] 5.7 % Normal 4.5-6.2 [facility] Comment on above: Performed By: #### A 1C #### [facility] [address] [address] [address] Geo Johns LIPID PROFILEon 02-16-2022 CHOL-HDL RATIO NORM SEE BELOW Normal [facility] Comment on above: Result Comment: 3.3 - 4.4 LOW RISK 4.4 - 7.1 AVERAGE RISK 7.1 - 11.0 MODERATE RISK >11.0 HIGH RISK Performed By: #### U SERA, CMP, LIPID #### [facility] [address] [address] [address] Geo Johns Cholesterol [Mass/Vol] 183 mg/dL Normal <=200 [facility] Comment on above: Performed By: #### U SERA, CMP, LIPID #### [facility] [address] [address] [address] Geo Johns Cholesterol in HDL [Mass/Vol] 59 mg/dL Normal 40-60 [facility] Comment on above: Performed By: #### U SERA, CMP, LIPID #### [facility] [address] [address] [address] Geo Johns Cholesterol in LDL [Mass/Vol] 101.6 mg/dL Normal [facility] Comment on above: Performed By: #### U SERA, CMP, LIPID #### [facility] [address] [address] [address] Geo Johns Cholesterol.total/Cho lesterol in HDL [Mass ratio] 3.1 {ratio} Normal [facility] Comment on above: Performed By: #### U SERA, CMP, LIPID #### [facility] [address] [address] [address] Geo Johns HDL NORMAL > or = 60 mg/dl - LOW CARDIOVASCULAR RISK <40 mg/dl - HIGH CARDIOVASCULAR RISK Normal [facility] Comment on above: Performed By: #### U SERA, CMP, LIPID #### [facility] [address] [address] [address] Geo Johns LDL CALC NORMAL SEE BELOW Normal [facility] Comment on above: Result Comment: <100 mg/dl OPTIMAL 100 - 129 mg/dl NEAR OR ABOVE OPTIMAL 130 - 159 mg/dl BORDERLINE HIGH 160 - 189 mg/dl HIGH >190 mg/dl VERY HIGH Performed By: #### U SERA, CMP, LIPID #### [facility] [address] [address] [address] Geo Johns Triglyceride [Mass/Vol] 112 mg/dL Normal <=150 [facility] Comment on above: Performed By: #### U SERA, CMP, LIPID #### [facility] [address] [address] [address] Geo Johns VLDL CALC 22.4 mg/dL Normal [facility] Comment on above: Performed By: #### U SERA, CMP, LIPID #### [facility] [address] [address] [address] Geo Johns PROF 14(COMP METB)on 022 Albumin [Mass/Vol] 4.1 g/dL Normal 3.4-5.0 [facility] Comment on above: Performed By: #### U SERA, CMP, LIPID #### [facility] [address] [address] [address] Geo Johns Albumin/Globulin [Mass ratio] 1.2 {ratio} Normal [facility] Comment on above: Performed By: #### U SERA, CMP, LIPID #### [facility] [address] [address] [address] Geo Johns ALP [Catalytic activity/Vol] 68 U/L Normal 46-116 [facility] Comment on above: Performed By: #### U SERA, CMP, LIPID #### [facility] [address] [address] [address] Geo Johns ALT [Catalytic activity/Vol] 35 U/L Normal 16-63 [facility] Comment on above: Performed By: #### U SERA, CMP, LIPID #### [facility] [address] [address] [address] Geo Johns Anion gap [Moles/Vol] 14.7 mmol/L Normal [facility] Comment on above: Performed By: #### U SERA, CMP, LIPID #### [facility] [address] [address] [address] Geo Johns AST [Catalytic activity/Vol] 16 U/L Normal 15-37 [facility] Comment on above: Performed By: #### U SERA, CMP, LIPID #### [facility] [address] [address] [address] Geo Johns Bilirubin [Mass/Vol] 0.3 mg/dL Normal 0.2-1.0 [facility] Comment on above: Performed By: #### U SERA, CMP, LIPID #### [facility] [address] [address] [address] Geo Johns Calcium [Mass/Vol] 8.7 mg/dL Normal 8.5-10.1 [facility] Comment on above: Performed By: #### U SERA, CMP, LIPID #### [facility] [address] [address] [address] Geo Johns Chloride [Moles/Vol] 105 mmol/L Normal 98-107 [facility] Comment on above: Performed By: #### U SERA, CMP, LIPID #### [facility] [address] [address] [address] Geo Johns CO2 [Moles/Vol] 25.8 mmol/L Normal 21.0-32.0 [facility] Comment on above: Performed By: #### U SERA, CMP, LIPID #### [facility] [address] [address] [address] Geo Johns Creatinine [Mass/Vol] 1.00 mg/dL Normal 0.70-1.30 [facility] Comment on above: Performed By: #### U SERA, CMP, LIPID #### [facility] [address] [address] [address] Geo Johns EGFR-AF MARSHALLESE >60 Normal >=60 [facility] Comment on above: Performed By: #### U SERA, CMP, LIPID #### [facility] [address] [address] [address] Geo Johns EGFR-NON AF MARSHALLESE >60 Normal >=60 [facility] Comment on above: Performed By: #### U SERA, CMP, LIPID #### [facility] [address] [address] [address] Geo Johns Globulin (S) [Mass/Vol] 3.3 g/dL Normal [facility] Comment on above: Performed By: #### U SERA, CMP, LIPID #### [facility] [address] [address] [address] Geo Johns Glucose [Mass/Vol] 127 mg/dL Critically high 74-106 [facility] Comment on above: Performed By: #### U SERA, CMP, LIPID #### [facility] [address] [address] [address] Geo Johns Potassium [Moles/Vol] 4.5 mmol/L Normal 3.5-5.1 [facility] Comment on above: Performed By: #### U SERA, CMP, LIPID #### [facility] [address] [address] [address] Geo Johns Protein [Mass/Vol] 7.4 g/dL Normal 6.4-8.2 [facility] Comment on above: Performed By: #### U SERA, CMP, LIPID #### [facility] [address] [address] [address] Geo Johns Sodium [Moles/Vol] 141 mmol/L Normal 136-145 [facility] Comment on above: Performed By: #### U SERA, CMP, LIPID #### [facility] [address] [address] [address] Geo Johns Urea nitrogen [Mass/Vol] 23.0 mg/dL Critically high 7.0-18.0 [facility] Comment on above: Performed By: #### U SERA, CMP, LIPID #### [facility] [address] [place], [place] [address] Dr. Geo Johns Urea nitrogen/Creatinine [Mass ratio] 23.0 mg/mg Normal [facility] Comment on above: Performed By: #### U SERA, CMP, LIPID #### [facility] [address] [place], [place] [address] Dr. Geo Johns URIC ACID SERUMon 02-16-2022 Urate [Mass/Vol] 4.9 mg/dL Normal 3.5-7.2 [facility] Comment on above: Performed By: #### U SERA, CMP, LIPID #### [facility] [id number] Geo Johns Encounters Encounter Date Encounter Type Care Provider Facility Start: 02-19-2022 Encounter for genera l adult medical examination without abnormal findings DR CAROLYN BAIRES [facility] Start: 02-16-2022 End: 02-17-[address] CAROLYN BAIRES Facility:[facility] Start: 02-16-2022 End: 02-17-2022 Encounter for general adult medical examination without abnormal findings DR CAROLYN BAIRES Facility:[facility] Start: 07-17-[address] CAROLYN BAIRES Facility :[facility] Procedures Date Procedure Procedure Detail Performing Clinician Start: 02-16-[address] BOZENA BAIRES Comment on above: Performed By: #### P SASC #### [facility] [id number] Geo Johns Payers Date Payer Category Payer Unknown [id number] [id number] 1965 Unknown [id number] 1958 Self-pay 1958 Unknown [id number] Summary Purpose Family History No Family History [...] BE BASED ON THE PRIMARY CLINICAL RECORDS. [facility] provides no warranty or guarantee of the accuracy or completeness of information in this document.
[2024-05-23 08:07] LABS: Testosterone 231 ng/dL (264-916)
== END 2024-05-22 07:04 | disposition home or self-care (01) ==
LOC: LAB 07:04
PROVIDERS: PCP Family Medicine; Visit Provider Family Medicine
DX: E29.1 Testicular hypofunction (principal)
CPT/HCPCS: 36415; 84403

== ENCOUNTER 2025-01-01 06:46 | Outpatient (OUT) | payer OTHER, SELFPAY ==
--- OUTSIDE RECORDS SUMMARY | 2023-11-21 11:15 | XMS_ITS ---
Author Organization [facility] [place] Address [address] [place] [address] Care Team Providers Care Township Clerk Name Role Phone Vinayak Pritchard Primary Care Provider REASON FOR VISIT injection Encounters Encounter Location Date Provider Diagnosis [facility] [address] [place] [address] 11/21/2023 Vinayak Pritchard Plan Of Treatment No Information Progress Notes * ALVAREZKristofer ADOB:[birth year] (59 yo M)Acc No.[id number]:11/21/2023 UNLOCKED PROGRESS NOTE Progress Note Patient: Kristofer BOYD Provider: Radames Pritchard MD (TTC) :1965 A ge:58 Y S ex:Male Date:11/21/2023 Address:[facility] Subjective: * Chief Complaints: * 1 . Injection. * Medical History: Objective: * Vitals: Assessment: Plan: * Treatment: * * Electronic signature of Vinayak Pritchard MD, [id number] on 01/01/2025 at 06:49 AM EDT Sign off status: Pending Visit Status: C ANCPHONE (Cancelled Phone) * Provider: Radames Pritchard MD (TTC) Date: 11/21/2023 Generated for Printi ng/Faxing/eTransmitting on: 0 01/01/2025 06:49 AM EDT
--- OUTSIDE RECORDS SUMMARY | 2025-01-01 06:49 | XMS_ITS | Patient Health Record ---
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 Name Role Phone Vinayak Pritchard Primary Care Provider Allergies Allergen (clinical drug ingredient) Drug/Non Drug Allergy documented on EMR Reaction Allergy Type Onset Date Status Shellfish (FN) Shellfish-derived Products anaphylaxis Drug Allergy Active Results Component Value Reference Range Notes Testosterone Reviewed date:05/23/2024 11:14:40 AM Interpretation: Performing Lab: Notes/Report: [facility] , Testosterone [phone] ng/dL [address] [place], [place] [id number] Adult male reference interval is based on a population of Performed at: [facility] [id number]. 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. [email or web address] 2017,102;[id number]. PMID: Performing Lab: see note - [facility] Reason For Referral No Information Medications Medication SIG (Take, Route, Frequency, Duration) Notes Start Date End Date Status Test Strips - Use one strip every morning via glucose meter; Duration: 90 days 08/05/2023 Active Desvenlafaxine Succinate ER 50 MG 1 tablet Orally Once a day; Duration: 90 days Active Testosterone Cypionate 200 MG/ML INJECT 1 ML INTRAMUSCULARLY EVERY OTHER WEEK; Duration: 28 07/13/2024 Active Lisinopril 40 MG 1 tablet Orally Once a day; Duration: 90 days Active Needle (Disp) 25G X 1 Use 1 needle ever y other week to give Testosterone injection; Duration: 28 days 04/01/2024 Active Simvastatin 20 MG 1 tablet in the even ing Orally Once a day; Duration: 90 days Active Syringe (Disposable) 1 ML Use 1 syringe every other week to give Testosterone injection; Duration: 28 days 04/01/2024 Active Glucometer - Use Glucometer Once Every Morning to Check Fasting Blood Sugar; Duration: 365 days 08/05/2023 Active Lancets - Use one lancet via g lucose meter; Duration: 90 days 08/05/2023 Active Social History Tobacco Use: Social History Observation Description Date Details (start date - stop date) Never Smoker NA - NA Tobacco Use/Smoking Question Answer Notes Patient is a nonsmoker AUDIT-C (Standard) Question Answer Notes Did you have a drink contain ing alcohol in the past year? Yes How often did you have six o r more drinks on one occasion in the past year? Never (0 point) How many drinks did you have on a typical day when you were drinking in the past year? 1 or 2 drinks (0 point) How often did you have a dri nk containing alcohol in the past year? Daily or almost daily (4 points) Points 4 Interpretation Positive Problems Problem Type SNOMED Code ICD Code Onset Dates Problem Status W/U Status Risk Notes Problem Type II diabetes mellitus without complication (069081834) Type 2 diabetes mellitus without complications (E11.9) Active confirmed Problem Testicular hypofunction (169689571) Testicular hypofunction (E29.1) Active confirmed Problem Endocrine disorder (364555155) Endocrine disorder, unspecified (E34.9) Active confirmed Problem Hypertension (07497586) Hypertension (I10) Active confirmed Problem Well adult (255362001) Well adult (Z00.00) Activ e confirmed Problem hypercholesterolemia (disorder) (75373986) Hypercholesteremia (E78.00) Active confirmed Problem Sensory hearing loss (24507454) Sensory hearing loss (H90.5) Active confirmed Vital Signs Blood pressure diastolic 70 mm Hg 12/27/2024 Height 69 in 12/27/2024 Blood pressure systolic 136 mm Hg 12/27/2024 Weight 238 lbs 12/27/2024 BMI 35.14 kg/m2 12/27/2024 Encounters Encounter Location Date Provider Diagnosis [facility] [address] [place] [address] 05/23/2024 Vinayak Hoy Hypertension I10 [facility] [address] [place] [address] 05/27/2024 Vinayak Hoy Hypertension I10 [facility] [address] [facility] [address] 05/31/2024 Vinayak Hoy Hypertension I10 [facility] [address] [facility] [place] [address] 06/16/2024 Vinayak Hoy Hypertension I10 [facility] [address] [facility] [address] 07/15/2024 Vinayak Hoy Hypertension I10 [facility] [address] [facility] [place] [address] 02/19/2024 Vinayak Hoy Hypertension I10 [facility] [address] [facility] [place] [address] 03/17/2024 Vinayak Hoy Hypertension I10 [facility] [address] [facility] [place] [address] 04/01/2024 Vinayak Hoy [facility] [address] [facility] [place] [address] 05/20/2024 Vinayak Hoy Testicular hypofunct ion E29.1 [facility] [address] [facility] [place] [address] 03/19/2024 Vinayak Hoy Testicular hypofunct ion E29.1 [facility] [address] [facility] [place] [address] 12/27/2024 Vinayak Hoy Well adult Z00.00 Assessments Encounter Date Diagnosis (ICD Code) Assessment Notes Treatment Notes Treatment Clinical Notes Section Notes 02/19/2024 Hypertension (ICD-10 - I10) 03/17/2024 Hypertension (ICD-10 - I10) 05/20/2024 Testicular hypofunction (ICD-10 - E29.1) 05/23/2024 Hypertension (ICD-10 - I10) 05/27/2024 Hypertension (ICD-10 - I10) 05/31/2024 Hypertension (ICD-10 - I10) 06/16/2024 Hypertension (ICD-10 - I10) 07/15/2024 Hypertension (ICD-10 - I10) 03/19/2024 Testicular hypofunction (ICD-10 - E29.1) 12/27/2024 Well adult (ICD-10 - Z00.00) Plan Of Treatment Pending Test Test Name Order Date CMP (COMPLETE METABOLIC PANEL) 4 HEMOGLOBIN A1C (GLYCO) 07/07/2023 HEMOGLOBIN A1C (GLYCO) 12/27/2024 LIPID PANEL (CHOL/TRIG/HDL/LDL) 12/28/19 25 LIPID PANEL (CHOL/TRIG/HDL/LDL) 07/07/19 24 CBC WITH DIFF 07/07/2023 PSA, PROSTATE-SPECIFIC ANTIGEN 4 STOOL OCCULT BLOOD 07/07/2023 TESTOSTERONE, TOTAL 12/27/2024 TESTOSTERONE, TOTAL 07/21/2023 TESTOSTERONE, TOTAL 11/07/2023 THYROID PANEL (T4/TSH/FREE T3) 5 THYROID PANEL (T4/TSH/FREE T3) 4 Testosterone 08/08/2023 PSA, SCREENING 12/27/2024 CMP (COMP MET CARDONA) w/eGFR CKD-EPI 2024 CBC WITH DIFF 12/27/2024 Insurance Providers Payer Name Payer Address Payer Phone Subscriber Number Group Number Insured Name Patient Relationship to Insured Coverage Start Date Coverage End Date MMO [employer] [address] [place] [address] [id number] Kristofer Blair Self - patient is the insured Medications Administered Medication Instructions Date of Administration Dosage Notes Testosterone Cypionate 09/02/2023 0.5 mL Testosterone Cypionate 09/19/2023 0.5 mL Testosterone Cypionate 10/10/2023 0.5 mL Testosterone Cypionate 10/24/2023 0.5 mL Medical (General) History Medical History History ICD Code Hypercholesteremia E78.00 Sensory hearing loss H90.5 Hypertension I10 Surgical History Surgery Date(Month/Year) HEMORRHOIDECTOMY
[2025-01-01 07:36] LABS: Hematocrit 46.1 % (42.0-54.0); Hemoglobin 15.8 g/dL (14.0-18.0); Immature Granulocytes Abs Auto 0.01 10^3/uL (0.00-0.03); Immature Granulocytes Pct Auto 0.2 % (0.0-0.5); Lymphocytes Absolute Auto 1.5 10^3/uL (1.2-3.8); Mean Corpuscular HGB Conc 34.3 g/dL (29.9-35.2); Mean Corpuscular Hemoglobin 32.0 pg (25.9-34.0); Mean Corpuscular Volume 93.3 fL (80.0-94.0); Platelet Count 170 10^3/uL (150-450); Red Blood Count 4.94 10^6/uL (4.70-6.10); White Blood Count 5.4 10^3/uL (4.0-11.0)
[2025-01-01 08:14] LABS: Alanine Aminotransferase 47 U/L (16-63); Albumin Globulin Ratio 1.0; Albumin Level 3.6 g/dL (3.4-5.0); Alkaline Phosphatase 60 U/L (46-116); Anion Gap 11.0; Aspartate Amino Transferase 26 U/L (15-37); Blood Urea Nitrogen 8.0 mg/dL (7.0-18.0); Calcium 8.5 mg/dL (8.5-10.1); Carbon Dioxide 27.4 mmol/L (21.0-32.0); Chloride 104 mmol/L (98-107); Cholesterol 155 mg/dL (<=200); Estimated GFR (African America >60 (>=60 mL/min/1.73m^2); Estimated GFR (Non-African Ame >60 (>=60 mL/min/1.73m^2); Free T3 2.83 pg/mL (2.18-3.98); Globulin 3.7 g/dL; Glucose 167 mg/dL (74-106); HDL Cholesterol 33 mg/dL (40-60); Potassium 4.4 mmol/L (3.5-5.1); Sodium 138 mmol/L (136-145); Thyroid Stimulating Hormone 1.659 uIU/mL (0.358-3.740); Total Protein 7.3 g/dL (6.4-8.2); Triglycerides 240 mg/dL (<=150); VLDL CHOLESTEROL 48.0 mg/dL
== END 2025-01-01 06:47 | disposition home or self-care (01) ==
LOC: LAB 06:47
PROVIDERS: PCP Family Medicine; Visit Provider Family Medicine
DX: Z00.00 Encounter for general adult medical examination without abnormal findings (principal); Z12.5 Encounter for screening for malignant neoplasm of prostate; E29.1 Testicular hypofunction
CPT/HCPCS: 36415; 80053; 80061; 83036; 84403; 84436; 84443; 84481; 85025; G0103